=== PATIENT | female | born 1950 | race Caucasian/White ===

== ENCOUNTER 2017-06-02 12:06 | Outpatient (CLI) | payer MEDICARE ==
--- NOTE | 2017-06-02 13:28 | RAD ---
CHEST PA AND LATERAL: History: 67-year-old female for pre-operative evaluation. FINDINGS: Heart size is within normal limits. The lungs are clear. No pneumonia, edema, or pleural effusion. IMPRESSION: No acute intrathoracic disease. POS: [facility]
[2017-06-02 13:33] LABS: #Eosinphils 0.3 thou/uL (0.0-0.7); #Lymphocytes 1.1 thou/uL (1.20-3.40); #Monocytes 0.5 thou/uL (0.11-0.59); #Neutrophils 2.5 thou/uL (1.40-6.50); %Eosinophils 5.9 % (0.0-10.0); %Lymphocytes 25.1 % (21.0-51.0); %Monocytes 10.7 % (0.0-10.0); Mean Platelet Volume 8.3 fL (7.4-10.4); Red Blood Cell (RBC) Count 4.04 mill/uL (4.20-5.40); White Blood Cell (WBC) Count 4.3 thou/uL (4.8-10.8)
[2017-06-02 13:37] LABS: PTT 31.8 SEC (22.9-36.1); Prothrombin Time 13.3 SEC (12.0-14.7)
[2017-06-02 13:46] LABS: Bilirubin Negative (Negative); Blood, Urine Negative (Negative); Glucose, Urine (Dipstick) Negative (Negative); Ketone, Urine Negative (Negative); Nitrite Negative (Negative); Protein, Urine (Dipstick) Negative (Neg-Trace); Urobilinogen 0.2 mg/dL (0.2-1.0)
[2017-06-02 13:52] LABS: Bacteria/HPF None Seen HPF (None Seen); Hyaline Casts/LPF 0-3 HYALINE CAST LPF (0-3 Hyaline); RBC/HPF 0-3 HPF (0-3); Squamous Epithelial None Seen HPF (0-3); WBC/HPF 0-3 HPF (0-3)
[2017-06-02 14:00] LABS: Anion Gap 11 mmol/L (10-20); BUN (Urea Nitrogen) 22 mg/dL (9.8-20.1); Calc. Creatinine Clearance 0 mL/min (70-130); Calcium 9.6 mg/dL (7.8-10.44); Carbon Dioxide 28 mmol/L (23-31); Chloride 105 mmol/L (98-107); Estimated GFR-MDRD 55
== END 2017-06-02 12:07 | disposition home or self-care (01) ==
LOC: LABBT 12:06
PROVIDERS: ATTEND Orthopaedic Surgery
DX: Z01.818 Encounter for other preprocedural examination (principal); M16.12 Unilateral primary osteoarthritis, left hip
CPT/HCPCS: 71020; 80048; 81001; 85025; 85610; 85730; 87081

== ENCOUNTER 2017-06-02 12:30 | Inpatient (IN) | payer MEDICARE ==
[2017-06-02 12:29] VITALS: BMI 29.9
[2017-06-09] MEDS ORDERED: Fentanyl 100 MCG/2 ML VIAL ONE ×5 (06:27→09:33)
[2017-06-09] MEDS ORDERED: Midazolam HCl 2 mg/2 ml Vial ONE (06:27)
[2017-06-09] MEDS ORDERED: Tranexamic Acid 1,000 MG/100 ML BAG ONE ×2 (06:50→09:19)
[2017-06-09] MEDS ORDERED: CEFAZOLIN/Water 2 GM/20 ML SYRINGE ONE (06:51)
[2017-06-09] MEDS ORDERED: Fentanyl/Bupivacaine 250 ML in Premix Bag 1 BAG EPIDURAL SCH (07:15)
[2017-06-09] MEDS ORDERED: traMADol HCl 50 MG TAB PO PRN ×3 (07:15→07:19)
[2017-06-09] MEDS ORDERED: Naloxone HCl 0.4 mg/ml Vial IVP PRN (07:15)
[2017-06-09] MEDS ORDERED: diphenhydrAMINE 50 MG/ML VIAL IM PRN (07:15)
[2017-06-09] MEDS ORDERED: Zolpidem Tartrate 5 MG TAB PO PRN ×2 (07:15→07:19)
[2017-06-09] MEDS ORDERED: Eucerin (Mineral Oil/Petrolatum,White) 30 gm Jar TOP PRN (07:15)
[2017-06-09] MEDS ORDERED: HYDROcodone/Acetaminophen 5/325 mg Tablet PO PRN (07:15)
[2017-06-09] MEDS ORDERED: Naloxone HCl 0.4 mg/ml Vial IV PRN (07:15)
[2017-06-09] MEDS ORDERED: Promethazine HCl 25 MG/ML VIAL IM PRN ×3 (07:15→09:04)
[2017-06-09] MEDS ORDERED: diphenhydrAMINE 50 MG/ML VIAL IVP PRN (07:15)
[2017-06-09] MEDS ORDERED: Bupivacaine 0.25% 10 ML VIAL EPIDURAL PRN (07:15)
[2017-06-09] MEDS ORDERED: Ondansetron HCl/PF 4 MG/2 ML Vial IVP PRN ×3 (07:15→09:04)
[2017-06-09] MEDS ORDERED: Promethazine HCl 25 MG SUPP PR PRN (07:15)
[2017-06-09] MEDS ORDERED: HYDROcodone/Acetaminophen 10/325 mg Tablet PO PRN ×2 (07:19)
[2017-06-09] MEDS ORDERED: Fentanyl 100 MCG/2 ML VIAL SLOW IVP PRN ×2 (07:19)
[2017-06-09] MEDS ORDERED: Acetaminophen 325 MG TAB PO PRN (07:19)
[2017-06-09] MEDS ORDERED: diphenhydrAMINE 25 MG CAP PO PRN (07:19)
[2017-06-09] MEDS ORDERED: ePHEDrine/0.9% NaCl/PF SYRINGE 50 mg/10 ml ONE (07:23)
[2017-06-09] MEDS ORDERED: Propofol 200 MG/20 ML VIAL ONE (07:23)
[2017-06-09] MEDS ORDERED: Glycopyrrolate 0.2 MG/ML 5 ML SYRINGE ONE (07:23)
[2017-06-09] MEDS ORDERED: Lidocaine 2% PF 10 ML AMP (For Epidural Use) ONE (07:23)
[2017-06-09] MEDS ORDERED: Tranexamic Acid 1,000 MG in Sodium Chloride 0.9% 100 ML IVPB SCH (07:30)
[2017-06-09] MEDS ORDERED: Ropivacaine 0.2% HCl/PF 20 ML ONE (08:31)
[2017-06-09] MEDS ORDERED: Calcium Carbonate 500 MG TAB PO SCH (09:00)
[2017-06-09] MEDS ORDERED: Promethazine HCl 25 MG/ML VIAL SLOW IVP PRN (09:04)
[2017-06-09] MEDS ORDERED: Fentanyl/Bupivacaine 250 ML EPIDURAL ONE (09:28)
[2017-06-09] MEDS: Sodium Chloride 0.9% 1,000 ML IV SCH ×2 (10:04→14:29)
[2017-06-09] MEDS: Senokot S 8.6-50 MG TAB PO SCH ×2 (10:05→20:34)
[2017-06-09] MEDS: Ferrous Gluconate 324 MG TAB PO SCH ×2 (10:05→20:33)
[2017-06-09] MEDS: Calcium Carbonate 500 MG TAB PO SCH (10:05)
[2017-06-09] MEDS: Lisinopril/Hydrochlorothiazide 20 mg/12.5 mg Tablet PO SCH (10:05)
[2017-06-09] MEDS: Multivitamin W/ Minerals 1 TAB PO SCH (10:05)
[2017-06-09] MEDS: Aspirin 325 MG TAB PO SCH ×2 (10:05→20:33)
[2017-06-09] MEDS ORDERED: diphenhydrAMINE 50 MG/ML VIAL ONE (10:06)
--- NOTE | 2017-06-09 10:06 | RAD ---
TWO VIEWS LEFT HIP: Date: 06-09-17 History: Post op total hip replacement. FINDINGS: There are post-surgical changes related to left total hip prosthesis. No hardware complication seen. There is no fracture or dislocation seen. Subcutaneous emphysema is seen about the left hip related t o recent post-surgical change. A King catheter overlies the midline of the pelvis. IMPRESSION: Post-surgical changes related to recent left total hip replacement. POS: [facility]
--- NOTE | 2017-06-09 12:11 | OP ---
PREOPERATIVE DIAGNOSIS: Degenerative joint disease, left hip. POSTOPERATIVE DIAGNOSIS: Degenerative joint disease, left hip. SURGEON: Javier Vo M.D. ANESTHESIA: Genera . Asst: Call BLOOD LOSS: 200 mL. SPECIMEN: None. DRAINS: None. COMPLICATIONS: None. IMPLANTS USED: [place] Accolade #1 stem, 50-mm PSL cup, 36-mm head standard and standard 36-mm liner. PROCEDURE IN DETAIL: After informed consent was obtained in the preoperative holding area, the patient was taken to the operative suite where general anesthesia was induced. The patient was then positioned in the lateral decubitus position. The hip was then prepped and draped in usual sterile fashion. The patient received preoperative antibiotics. Prior to incision, time-out was called and all members of the surgical team agreed upon site, surgeon, and patient. After this, a longitudinal incision was made directly over the trochanter, noted by palpation extending 2 fingerbreadths above and below the trochanter. The deeper subcutaneous layer was undermined with Bovie electrocautery. The iliotibial band was encountered and incised sharply and the plane below this was developed bluntly. A Charnley retractor was placed to hold this opened. The lateral aspect of the trochanter and the abductor muscles were encountered and then reflected anteriorly off the trochanter using Bovie electrocautery. Once this was completed, the anterior capsule was then encountered and identified and copious capsulotomy was carried out, exposing the femoral neck and head. Dislocation maneuver was then performed and an in situ provisional neck cut was then made using the oscillating saw. Attention was then turned to acetabular preparation and sequential reaming was carried out up to the appropriate diameter and a trial was then malleted into place with good firm resistance and no pullout. The permanent acetabular shell was then malleted squarely into place, as was the appropriate liner. Once completed , the wound was copiously irrigated and attention was then turned to femoral preparation. Flexion and external rotation was performed of the exposed thigh and femoral elevators were then placed at the proximal aspect of the wound. Canal finder was used to establish the length of the canal and sequential reaming was carried out, followed by broaching. Once the appropriate stability was established with the trial broaches with both flexion, extension and rotational stability, we did trial with neutral and 2 mm offset incremental necks. Once the appropriate size was decided upon, with good stability noted with flexion, extension, internal and external rotation and shuck being negative , we removed the femoral trial broach and malletted into place the permanent prosthesis with good firm fit, which was also stable to rotation. Again, the hip felt very stable to flexion, extension, internal and external rotation. Leg lengths appeared near anatomic clinically and we were quite happy with prosthesis placement. Copious irrigation was then carried out through the entirety of the wound. Primary closure of the abductors was accomplished with interrupted #2 Vicryl [id number] stitches and the IT band was then closed with interrupted #2 Vicryl, oversewn with a #2 running barbed Quill stitch. Subcutaneous fascia was closed with running barbed Quill stitch and a subcuticular Monocryl barbed Quill stitch was used for skin closure and augmented with skin cement. A sterile dressing was applied. The procedure was terminated without any complication. All counts were correct. The patient was awakened in the operative suite and taken to the recovery room in stable condition. TACOS
[2017-06-09] MEDS ORDERED: FLU VACC TS2017-18 (>65YR) 0.5 ML SYRINGE IM ONE (13:00)
[2017-06-09] MEDS: CEFAZOLIN/Water 2 GM/20 ML SYRINGE SLOW IVP SCH ×2 (14:19→23:14)
--- NOTE | 2017-06-09 15:32 | PDOC.PN ---
- Subjective Encounter Start Date: 06/09/17 Encounter Start Time: 15:28 Pt seen for management of medical comorbidities, including hypertension. Denies chest pain, shortness of breath, fevers or chills. No nausea or vomiting. - Objective MAR Reviewed: Yes Vital Signs & Weight: Vital Signs (12 hours) Temp Pulse Resp BP Pulse Ox 06/09/17 12:21 97.0 F L 36 L 16 99 06/09/17 10:25 36 L 16 118/81 06/09/17 10:05 44 L 06/09/17 10:02 97.0 F L 44 L 18 105/44 L 98 Weight Weight 164 lb Result Diagrams: 06/10/17 04:56 Phys Exam - Physical Examination Constitutional: NAD HEENT: moist MMs, oral pharynx no lesions Neck: supple Respiratory: clear to auscultation bilateral Cardiovascular: RRR Gastrointestinal: soft s/p L hip surgery Neurological: moves all 4 limbs Psychiatric: normal affect Skin: no rash Dx/Plan (1) Hypertension Code(s): I10 - ESSENTIAL (PRIMARY) HYPERTENSION Status: Chronic (2) Hypothyroidism Code(s): E03.9 - HYPOTHYROIDISM, UNSPECIFIED Status: Chronic (3) Bradycardia Code(s): R00.1 - BRADYCARDIA, UNSPECIFIED Status: Chronic (4) Arthritis Code(s): M19.90 - UNSPECIFIED OSTEOARTHRITIS, UNSPECIFIED SITE Status: Chronic - Plan plan discussed w/ family, PT/OT, out of bed/ambulate * . Monitor vital signs, titrate antihypertensives as needed. Continue synthroid. Check TSH with next blood draw (to r/o hypothyroidism as a cause of bradycardia). Pt reports she has been bradycardic for several years, will follow up with her pcp. s/p L hip surgery. DVT prophylaxis and pain management per orthopedic surgery. Review of Systems - Review of Systems Constitutional: negative: Fever, Chills, Sweats, Weakness, Malaise Respiratory: negative: Cough, Dry, Shortness of Breath, Hemoptysis, SOB with Excertion, Pleuritic Pain, Sputum, Wheezing Cardiovascular: negative: Chest Pain, Palpitations, Orthopnea, Paroxysmal Noc. Dyspnea, Edema, Light Headedness - Medications/Allergies Allergies/Adverse Reactions: Allergies Allergy/AdvReac Type Severity Reaction Status Date / Time No Known Allergies Allergy Unverified 06/02/17 12:30 Medications: Current Medications Acetaminophen (Tylenol) 650 mg PO Q4H PRN PRN Reason: SANTIAGO/ T > 101F; Mild Pain (1-3) Hydrocodone Bitart/Acetaminophen ([place] 5/325) 1 tab PO Q4H PRN PRN Reason: Mild Pain 0-3 Hydrocodone Bitart/Acetaminophen ([place] 5/325) 2 tab PO Q4H PRN PRN Reason: For Moderate Pain 4-6 Aspirin (Aspirin) 325 mg PO BID [facility] Last Admin: 06/09/17 10:05 Dose: Not Given Atorvastatin Calcium (Lipitor) 20 mg PO HS [facility] Calcium Carbonate (Oscal-500) 500 mg PO DAILY [facility] Last Admin: 06/09/17 10:05 Dose: Not Given Cefazolin Sodium (Ancef) 2 gm SLOW IVP 1500,2300 [facility] Stop: 06/09/17 23:01 Last Admin: 06/09/17 14:19 Dose: 2 gm Cholecalciferol (Vitamin D3) 1,000 units PO DAILY [facility] Last Admin: 06/09/17 10:05 Dose: Not Given Diphenhydramine HCl (Benadryl) 25 mg PO Q3H PRN PRN Reason: Itching Diphenhydramine HCl (Benadryl) 25 mg IM Q3H PRN PRN Reason: Itching Diphenhydramine HCl (Benadryl) 25 mg IVP Q3H PRN PRN Reason: Itching Last Admin: 06/09/17 14:19 Dose: 25 mg Ferrous Gluconate (Fergon) 324 mg PO BID [facility] Last Admin: 06/09/17 10:05 Dose: Not Given Lisinopril/HCTZ (Prinizide 20-12.5) 1 tab PO QAM [facility] Last Admin: 06/09/17 10:05 Dose: Not Given Fentanyl Citrate 250 ml/ (Device) 250 mls @ 0 mls/hr EPIDURAL INF [facility] Sodium Chloride (Normal Saline 0.9%) 1,000 mls @ 100 mls/hr IV .Q10H [facility] Last Admin: 06/09/17 14:29 Dose: 1,000 mls Iron/Minerals/Multivitamins (Theragran M) 1 tab PO DAILY [facility] Last Admin: 06/09/17 10:05 Dose: Not Given Ketorolac Tromethamine (Toradol) 15 mg IVP Q6H PRN PRN Reason: Moderate Pain (4-6) Stop: 06/12/17 07:16 Levothyroxine Sodium (Synthroid) 100 mcg PO 0600 [facility] Mineral Oil/White Petrolatum (Eucerin Cream) 0 gm TOP PRN PRN PRN Reason: Itching Naloxone HCl (Narcan) 0.2 mg IV Q5MIN PRN PRN Reason: RR <=8 OR OBTUNDED/UNAROUSABLE Naloxone HCl (Narcan) 0.1 mg IVP Q15MIN PRN PRN Reason: URINARY RETENTION Ondansetron HCl (Zofran) 4 mg IVP Q6H PRN PRN Reason: Nausea/Vomiting Promethazine HCl (Phenergan) 12.5 mg IM Q4H PRN PRN Reason: Nausea Promethazine HCl (Phenergan Suppository) 25 mg SD Q4H PRN PRN Reason: Nausea/Vomiting Senna/Docusate Sodium (Senokot S) 2 tab PO BID [facility] Last Admin: 06/09/17 10:05 Dose: Not Given Sodium Chloride (Flush - Normal Saline) 10 ml IVF PRN PRN PRN Reason: Saline Flush Tramadol HCl (Ultram) 50 mg PO Q6H PRN PRN Reason: Mild Pain 1-3 Tramadol HCl (Ultram) 100 mg PO Q6H PRN PRN Reason: Moderate Pain 4-6 Zolpidem Tartrate (Ambien) 5 mg PO HSPRN PRN PRN Reason: Insomnia
[2017-06-09] MEDS ORDERED: hydrALAZINE 20 MG/ML VIAL SLOW IVP PRN (15:44)
[2017-06-09] MEDS: diphenhydrAMINE 25 MG CAP PO PRN (17:26)
[2017-06-09] MEDS ORDERED: hydrOXYzine Pamoate 25 mg Capsule PO PRN (18:04)
[2017-06-09] MEDS: Ketorolac Tromethamine 30 MG/ML VIAL IVP PRN (19:25)
[2017-06-09] MEDS: Atorvastatin Calcium 20 MG TAB PO SCH (20:33)
[2017-06-09] MEDS: HCL EPIDURAL SCH (21:54)
[2017-06-09] MEDS: ROPIVACAINE 0.2% EPIDURAL SCH (21:54)
[2017-06-09] MEDS: SODIUM CHLORIDE 0.9% EPIDURAL SCH (21:54)
[2017-06-09] MEDS: HYDROcodone/Acetaminophen 5/325 mg Tablet PO PRN (22:04)
[2017-06-10] MEDS: HYDROcodone/Acetaminophen 5/325 mg Tablet PO PRN ×6 (01:31→21:48)
[2017-06-10] MEDS: Sodium Chloride 0.9% 1,000 ML IV SCH ×3 (01:33→23:56)
[2017-06-10] MEDS: Ketorolac Tromethamine 30 MG/ML VIAL IVP PRN ×3 (03:01→18:06)
[2017-06-10 05:24] LABS: Hematocrit 27.9 % (36.0-47.0); Mean Platelet Volume 8.3 fL (7.4-10.4); Red Blood Cell (RBC) Count 2.89 mill/uL (4.20-5.40); White Blood Cell (WBC) Count 4.9 thou/uL (4.8-10.8)
[2017-06-10] MEDS ORDERED: Levothyroxine Sodium 100 MCG TAB PO SCH (06:00)
[2017-06-10] MEDS: Multivitamin W/ Minerals 1 TAB PO SCH (08:18)
[2017-06-10] MEDS: Senokot S 8.6-50 MG TAB PO SCH ×2 (08:18→21:51)
[2017-06-10] MEDS: Calcium Carbonate 500 MG TAB PO SCH (08:18)
[2017-06-10] MEDS: Ferrous Gluconate 324 MG TAB PO SCH ×2 (08:18→21:51)
[2017-06-10] MEDS: Aspirin 325 MG TAB PO SCH ×2 (08:18→21:50)
[2017-06-10] MEDS: Lisinopril/Hydrochlorothiazide 20 mg/12.5 mg Tablet PO SCH (09:44)
[2017-06-10 11:04] LABS: Free T3 2.14 pg/mL (1.71-3.71)
--- NOTE | 2017-06-10 14:14 | PDOC.PN ---
- Subjective Encounter Start Date: 06/10/17 Encounter Start Time: 08:00 Pt seen for followup re: hyperthyroidism. denies chest pain, shortness of breath, fevers. - Objective MAR Reviewed: Yes Vital Signs & Weight: Vital Signs (12 hours) Temp Pulse Resp BP BP Pulse Ox 06/10/17 13:04 98.4 F 49 L 16 88/52 L 94 L 06/10/17 09:44 62 87/57 L 06/10/17 08:00 97.8 F 62 16 92 L 06/10/17 07:25 97.8 F 55 L 16 80/48 L 92 L 06/10/17 03:14 98.7 F 64 17 105/63 94 L Weight Weight 164 lb I&O: 06/09/17 06/10/17 06/11/17 06:59 06:59 06:59 Intake Total 500 1680 Output Total 700 2000 Balance -200 -320 Result Diagrams: 06/10/17 04:56 Phys Exam - Physical Examination Constitutional: NAD HEENT: moist MMs, oral pharynx no lesions Neck: no JVD Respiratory: clear to auscultation bilateral Cardiovascular: RRR, no rub Gastrointestinal: soft, positive bowel sounds s/p L hip surgery Psychiatric: normal affect Skin: no rash Dx/Plan (1) Hyperthyroidism Code(s): E05.90 - THYROTOXICOSIS, UNSP WITHOUT THYROTOXIC CRISIS OR STORM Status: Acute (2) Hypertension Code(s): I10 - ESSENTIAL (PRIMARY) HYPERTENSION Status: Chronic (3) Bradycardia Code(s): R00.1 - BRADYCARDIA, UNSPECIFIED Status: Chronic (4) Arthritis Code(s): M19.90 - UNSPECIFIED OSTEOARTHRITIS, UNSPECIFIED SITE Status: Chronic - Plan PT/OT, out of bed/ambulate * . Decrease daily synthroid dose to 88 mmcg, pt will need to followup with her PCP and have her thyroid profile checked in 4-6 weeks. Monitor vital signs and titrate antihypertensives as needed. Review of Systems - Review of Systems Cardiovascular: negative: Chest Pain, Palpitations, Orthopnea, Paroxysmal Noc. Dyspnea, Edema, Light Headedness Gastrointestinal: negative: Nausea, Vomiting, Abdominal Pain, Diarrhea, Constipation, Melena, Hematochezia, Other - Medications/Allergies Allergies/Adverse Reactions: Allergies Allergy/AdvReac Type Severity Reaction Status Date / Time No Known Allergies Allergy Unverified 06/02/17 12:30 Medications: Current Medications Acetaminophen (Tylenol) 650 mg PO Q4H PRN PRN Reason: SANTIAGO/ T > 101F; Mild Pain (1-3) Hydrocodone Bitart/Acetaminophen ([place] 5/325) 1 tab PO Q4H PRN PRN Reason: Mild Pain 0-3 Hydrocodone Bitart/Acetaminophen ([place] 5/325) 2 tab PO Q4H PRN PRN Reason: For Moderate Pain 4-6 Last Admin: 06/10/17 13:56 Dose: 2 tab Aspirin (Aspirin) 325 mg PO BID [facility] Last Admin: 06/10/17 08:18 Dose: 325 mg Atorvastatin Calcium (Lipitor) 20 mg PO HS [facility] Last Admin: 06/09/17 20:33 Dose: 20 mg Calcium Carbonate (Oscal-500) 500 mg PO DAILY [facility] Last Admin: 06/10/17 08:18 Dose: 500 mg Cholecalciferol (Vitamin D3) 1,000 units PO DAILY [facility] Last Admin: 06/10/17 08:18 Dose: 1,000 units Diphenhydramine HCl (Benadryl) 25 mg PO Q3H PRN PRN Reason: Itching Last Admin: 06/09/17 17:26 Dose: 25 mg Diphenhydramine HCl (Benadryl) 25 mg IM Q3H PRN PRN Reason: Itching Diphenhydramine HCl (Benadryl) 25 mg IVP Q3H PRN PRN Reason: Itching Last Admin: 06/09/17 14:19 Dose: 25 mg Ferrous Gluconate (Fergon) 324 mg PO BID [facility] Last Admin: 06/10/17 08:18 Dose: 324 mg Lisinopril/HCTZ (Prinizide 20-12.5) 1 tab PO QAM [facility] Last Admin: 06/10/17 09:44 Dose: Not Given Hydralazine HCl (Apresoline) 10 mg SLOW IVP Q6H PRN PRN Reason: SBP Greater Than 170 Hydroxyzine Pamoate (Vistaril) 25 mg PO TID PRN PRN Reason: itching Last Admin: 06/09/17 18:39 Dose: 25 mg Sodium Chloride (Normal Saline 0.9%) 1,000 mls @ 100 mls/hr IV .Q10H [facility] Last Admin: 06/10/17 01:33 Dose: 1,000 mls Ropivacaine 25 mg/ Sodium (Chloride) 100 mls @ 6 mls/hr EPIDURAL INF [facility] Last Admin: 06/09/17 21:54 Dose: 100 mls Iron/Minerals/Multivitamins (Theragran M) 1 tab PO DAILY [facility] Last Admin: 06/10/17 08:18 Dose: 1 tab Ketorolac Tromethamine (Toradol) 15 mg IVP Q6H PRN PRN Reason: Moderate Pain (4-6) Stop: 06/12/17 07:16 Last Admin: 06/10/17 11:54 Dose: 15 mg Levothyroxine Sodium (Synthroid) 100 mcg PO 0600 [facility] Last Admin: 06/10/17 05:35 Dose: 100 mcg Mineral Oil/White Petrolatum (Eucerin Cream) 0 gm TOP PRN PRN PRN Reason: Itching Naloxone HCl (Narcan) 0.2 mg IV Q5MIN PRN PRN Reason: RR <=8 OR OBTUNDED/UNAROUSABLE Naloxone HCl (Narcan) 0.1 mg IVP Q15MIN PRN PRN Reason: URINARY RETENTION Ondansetron HCl (Zofran) 4 mg IVP Q6H PRN PRN Reason: Nausea/Vomiting Last Admin: 06/10/17 06:14 Dose: 4 mg Promethazine HCl (Phenergan) 12.5 mg IM Q4H PRN PRN Reason: Nausea Promethazine HCl (Phenergan Suppository) 25 mg [place] Q4H PRN PRN Reason: Nausea/Vomiting Senna/Docusate Sodium (Senokot S) 2 tab PO BID [facility] Last Admin: 06/10/17 08:18 Dose: 2 tab Sodium Chloride (Flush - Normal Saline) 10 ml IVF PRN PRN PRN Reason: Saline Flush Tramadol HCl (Ultram) 50 mg PO Q6H PRN PRN Reason: Mild Pain 1-3 Tramadol HCl (Ultram) 100 mg PO Q6H PRN PRN Reason: Moderate Pain 4-6 Last Admin: 06/09/17 20:34 Dose: 100 mg Zolpidem Tartrate (Ambien) 5 mg PO HSPRN PRN PRN Reason: Insomnia
[2017-06-10] MEDS: HCL EPIDURAL SCH (15:39)
[2017-06-10] MEDS: ROPIVACAINE 0.2% EPIDURAL SCH (15:39)
[2017-06-10] MEDS: SODIUM CHLORIDE 0.9% EPIDURAL SCH (15:39)
[2017-06-10] MEDS: diphenhydrAMINE 25 MG CAP PO PRN (18:17)
[2017-06-10] MEDS: Atorvastatin Calcium 20 MG TAB PO SCH (21:51)
[2017-06-11] MEDS: Ketorolac Tromethamine 30 MG/ML VIAL IVP PRN ×2 (00:04→05:54)
[2017-06-11] MEDS: HYDROcodone/Acetaminophen 5/325 mg Tablet PO PRN ×2 (04:01→08:48)
[2017-06-11 04:15] VITALS: TEMP 98.6
[2017-06-11] MEDS: HCL EPIDURAL SCH (04:21)
[2017-06-11] MEDS: SODIUM CHLORIDE 0.9% EPIDURAL SCH (04:21)
[2017-06-11] MEDS: ROPIVACAINE 0.2% EPIDURAL SCH (04:21)
[2017-06-11 05:30] LABS: Hematocrit 29.6 % (36.0-47.0); Mean Platelet Volume 8.6 fL (7.4-10.4); Red Blood Cell (RBC) Count 3.02 mill/uL (4.20-5.40); White Blood Cell (WBC) Count 5.1 thou/uL (4.8-10.8)
[2017-06-11] MEDS ORDERED: Levothyroxine Sodium 88 MCG TAB PO SCH (06:00)
[2017-06-11] MEDS ORDERED: HYDROcodone/Acetaminophen 10/325 mg Tablet PO PRN ×2 (08:35)
[2017-06-11] MEDS: Aspirin 325 MG TAB PO SCH (08:44)
[2017-06-11] MEDS: Ferrous Gluconate 324 MG TAB PO SCH (08:44)
[2017-06-11] MEDS: Calcium Carbonate 500 MG TAB PO SCH (08:44)
[2017-06-11] MEDS: Lisinopril/Hydrochlorothiazide 20 mg/12.5 mg Tablet PO SCH (08:44)
[2017-06-11] MEDS: Multivitamin W/ Minerals 1 TAB PO SCH (08:45)
[2017-06-11] MEDS: Senokot S 8.6-50 MG TAB PO SCH (08:45)
--- NOTE | 2017-06-11 08:45 | PDOC.PN ---
- Subjective Encounter Start Date: 06/11/17 Encounter Start Time: 14:02 - Objective MAR Reviewed: Yes Vital Signs & Weight: Vital Signs (12 hours) Temp Pulse Resp BP Pulse Ox 06/11/17 04:00 98.6 F 61 18 119/72 97 06/11/17 00:00 98.5 F 64 16 111/65 94 L Weight Admit Weight 164 lb Weight 164 lb I&O: 06/10/17 06/11/17 06/12/17 06:59 06:59 06:59 Intake Total 500 2180 Output Total 700 4500 Balance -200 -2320 Result Diagrams: 06/11/17 04:29 Dx/Plan - Plan * . Review of Systems - Medications/Allergies Allergies/Adverse Reactions: Allergies Allergy/AdvReac Type Severity Reaction Status Date / Time No Known Allergies Allergy Unverified 06/02/17 12:30 Medications: Current Medications Acetaminophen (Tylenol) 650 mg PO Q4H PRN PRN Reason: SANTIAGO/ T > 101F; Mild Pain (1-3) Hydrocodone Bitart/Acetaminophen ([place] 5/325) 1 tab PO Q4H PRN PRN Reason: Mild Pain 0-3 Hydrocodone Bitart/Acetaminophen ([place] 5/325) 2 tab PO Q4H PRN PRN Reason: For Moderate Pain 4-6 Last Admin: 06/11/17 04:01 Dose: 2 tab Hydrocodone Bitart/Acetaminophen ([place] 10/325) 1 tab PO Q4H PRN PRN Reason: Pain Hydrocodone Bitart/Acetaminophen ([place] 10/325) 2 tab PO Q4H PRN PRN Reason: Pain Aspirin (Aspirin) 325 mg PO BID [facility] Last Admin: 06/10/17 21:50 Dose: 325 mg Atorvastatin Calcium (Lipitor) 20 mg PO HS [facility] Last Admin: 06/10/17 21:51 Dose: 20 mg Calcium Carbonate (Oscal-500) 500 mg PO DAILY [facility] Last Admin: 06/10/17 08:18 Dose: 500 mg Cholecalciferol (Vitamin D3) 1,000 units PO DAILY [facility] Last Admin: 06/10/17 08:18 Dose: 1,000 units Diphenhydramine HCl (Benadryl) 25 mg PO Q3H PRN PRN Reason: Itching Last Admin: 06/10/17 18:17 Dose: 25 mg Diphenhydramine HCl (Benadryl) 25 mg IM Q3H PRN PRN Reason: Itching Diphenhydramine HCl (Benadryl) 25 mg IVP Q3H PRN PRN Reason: Itching Last Admin: 06/09/17 14:19 Dose: 25 mg Ferrous Gluconate (Fergon) 324 mg PO BID [facility] Last Admin: 06/10/17 21:51 Dose: 324 mg Lisinopril/HCTZ (Prinizide 20-12.5) 1 tab PO QAM [facility] Last Admin: 06/10/17 09:44 Dose: Not Given Hydralazine HCl (Apresoline) 10 mg SLOW IVP Q6H PRN PRN Reason: SBP Greater Than 170 Hydroxyzine Pamoate (Vistaril) 25 mg PO TID PRN PRN Reason: itching Last Admin: 06/09/17 18:39 Dose: 25 mg Sodium Chloride (Normal Saline 0.9%) 1,000 mls @ 100 mls/hr IV .Q10H [facility] Last Admin: 06/10/17 23:56 Dose: Not Given Ropivacaine 25 mg/ Sodium (Chloride) 100 mls @ 8 mls/hr EPIDURAL INF [facility] Last Admin: 06/11/17 04:21 Dose: 100 mls Iron/Minerals/Multivitamins (Theragran M) 1 tab PO DAILY [facility] Last Admin: 06/10/17 08:18 Dose: 1 tab Ketorolac Tromethamine (Toradol) 15 mg IVP Q6H PRN PRN Reason: Moderate Pain (4-6) Stop: 06/12/17 07:16 Last Admin: 06/11/17 05:54 Dose: 15 mg Levothyroxine Sodium (Synthroid) 88 mcg PO 0600 [facility] Last Admin: 06/11/17 05:54 Dose: 88 mcg Mineral Oil/White Petrolatum (Eucerin Cream) 0 gm TOP PRN PRN PRN Reason: Itching Naloxone HCl (Narcan) 0.2 mg IV Q5MIN PRN PRN Reason: RR <=8 OR OBTUNDED/UNAROUSABLE Naloxone HCl (Narcan) 0.1 mg IVP Q15MIN PRN PRN Reason: URINARY RETENTION Ondansetron HCl (Zofran) 4 mg IVP Q6H PRN PRN Reason: Nausea/Vomiting Last Admin: 06/10/17 06:14 Dose: 4 mg Promethazine HCl (Phenergan) 12.5 mg IM Q4H PRN PRN Reason: Nausea Promethazine HCl (Phenergan Suppository) 25 mg [place] Q4H PRN PRN Reason: Nausea/Vomiting Senna/Docusate Sodium (Senokot S) 2 tab PO BID [facility] Last Admin: 06/10/17 21:51 Dose: 2 tab Sodium Chloride (Flush - Normal Saline) 10 ml IVF PRN PRN PRN Reason: Saline Flush Tramadol HCl (Ultram) 50 mg PO Q6H PRN PRN Reason: Mild Pain 1-3 Tramadol HCl (Ultram) 100 mg PO Q6H PRN PRN Reason: Moderate Pain 4-6 Last Admin: 06/09/17 20:34 Dose: 100 mg Zolpidem Tartrate (Ambien) 5 mg PO HSPRN PRN PRN Reason: Insomnia
[2017-06-11 08:48] VITALS: BP 117/72
[2017-06-11] MEDS: Sodium Chloride 0.9% 1,000 ML IV SCH (08:51)
--- NOTE | 2017-06-11 09:49 | DIS ---
DATE OF ADMISSION: 06/09/2017 DATE OF DISCHARGE: 06/11/2017 PREOPERATIVE DIAGNOSIS: Degenerative joint disease, left hip. DISCHARGE DIAGNOSIS: Degenerative joint disease, left hip. PROCEDURE: The patient underwent a left total hip replacement. HOSPITAL COURSE: Hospital stay was unremarkable. She did quite well. She had no postop complicatio ns. By postoperative day 2, she was ready to discharge home. DISCHARGE CONDITION: Good/stable. DISPOSITION: Home with family. FOLLOWUP: Followup would be in 3-4 weeks, sooner if there are problems or concerns. DISCHARGE MEDICATIONS: Given with usage instructions. This is Agus Call PA-C, for Javier Vo M.D.
--- NOTE | 2017-06-11 11:16 | PDOC.PN ---
- Subjective Encounter Start Date: 06/11/17 Encounter Start Time: 08:00 -: old records requested/rev Patient seen and examined. No new complaints. No overnight events - Objective MAR Reviewed: Yes Vital Signs & Weight: Vital Signs (12 hours) Temp Pulse Resp BP BP Pulse Ox 06/11/17 08:44 61 119/72 06/11/17 07:50 98.6 F 83 18 117/72 95 06/11/17 04:00 98.6 F 61 18 119/72 97 06/11/17 00:00 98.5 F 64 16 111/65 94 L Weight Admit Weight 164 lb Weight 164 lb I&O: 06/10/17 06/11/17 06/12/17 06:59 06:59 06:59 Intake Total 500 2180 Output Total 700 4500 Balance -200 -2320 Result Diagrams: 06/11/17 04:29 Phys Exam - Physical Examination Constitutional: NAD HEENT: PERRLA, moist MMs, sclera anicteric Neck: no JVD, supple Respiratory: no wheezing, no rales, no rhonchi Cardiovascular: RRR, no significant murmur, no rub Gastrointestinal: soft, non-tender, no distention, positive bowel sounds Musculoskeletal: no edema, pulses present Neurological: non-focal, normal sensation Psychiatric: normal affect, A&O x 3 Skin: no rash, normal turgor Dx/Plan (1) Hyperthyroidism Code(s): E05.90 - THYROTOXICOSIS, UNSP WITHOUT THYROTOXIC CRISIS OR STORM Status: Acute (2) Status post total hip replacement, left Code(s): Z96.642 - PRESENCE OF LEFT ARTIFICIAL HIP JOINT Status: Acute (3) Arthritis Code(s): M19.90 - UNSPECIFIED OSTEOARTHRITIS, UNSPECIFIED SITE Status: Chronic (4) Bradycardia Code(s): R00.1 - BRADYCARDIA, UNSPECIFIED Status: Chronic (5) Hypertension Code(s): I10 - ESSENTIAL (PRIMARY) HYPERTENSION Status: Chronic (6) Hypothyroidism Code(s): E03.9 - HYPOTHYROIDISM, UNSPECIFIED Status: Chronic - Plan cont current plan of care, plan discussed w/ family * stable for discharge * pain controlled * discussed with daughter * medication reviewed as below * symptomatic treatment. Review of Systems - Review of Systems ENT: negative: Ear Pain, Ear Discharge, Nose Pain, Nose Discharge, Nose Congestion, Mouth Pain, Mouth Swelling, Throat Pain, Throat Swelling, Other Respiratory: negative: Cough, Dry, Shortness of Breath, Hemoptysis, SOB with Excertion, Pleuritic Pain, Sputum, Wheezing Cardiovascular: negative: Chest Pain, Palpitations, Orthopnea, Paroxysmal Noc. Dyspnea, Edema, Light Headedness, Other Gastrointestinal: negative: Nausea, Vomiting, Abdominal Pain, Diarrhea, Constipation, Melena, Hematochezia, Other Genitourinary: negative: Dysuria, Frequency, Incontinence, Hematuria, Retention , Other Musculoskeletal: negative: Neck Pain, Shoulder Pain, Arm Pain, Back Pain, Hand Pain, Leg Pain, Foot Pain, Other Skin: negative: Rash, Lesions, Sergio, Bruising, Other - Medications/Allergies Allergies/Adverse Reactions: Allergies Allergy/AdvReac Type Severity Reaction Status Date / Time No Known Allergies Allergy Unverified 06/02/17 12:30 Medications: Current Medications Acetaminophen (Tylenol) 650 mg PO Q4H PRN PRN Reason: SANTIAGO/ T > 101F; Hydrocodone Bitart/Acetaminophen ([place] 5/325) 1 tab PO Q4H PRN PRN Reason: Mild Pain 0-3 Hydrocodone Bitart/Acetaminophen ([place] 5/325) 2 tab PO Q4H PRN PRN Reason: For Moderate Pain 4-6 Last Admin: 06/11/17 08:48 Dose: 2 tab Hydrocodone Bitart/Acetaminophen ([place] 10/325) 1 tab PO Q4H PRN PRN Reason: Moderate Pain (4-6) Hydrocodone Bitart/Acetaminophen ([place] 10/325) 2 tab PO Q4H PRN PRN Reason: Severe Pain (7-10) Aspirin (Aspirin) 325 mg PO BID [facility] Last Admin: 06/11/17 08:44 Dose: 325 mg Atorvastatin Calcium (Lipitor) 20 mg PO HS [facility] Last Admin: 06/10/17 21:51 Dose: 20 mg Calcium Carbonate (Oscal-500) 500 mg PO DAILY [facility] Last Admin: 06/11/17 08:44 Dose: 500 mg Cholecalciferol (Vitamin D3) 1,000 units PO DAILY [facility] Last Admin: 06/11/17 08:44 Dose: 1,000 units Diphenhydramine HCl (Benadryl) 25 mg PO Q3H PRN PRN Reason: Itching Last Admin: 06/10/17 18:17 Dose: 25 mg Diphenhydramine HCl (Benadryl) 25 mg IM Q3H PRN PRN Reason: Itching Diphenhydramine HCl (Benadryl) 25 mg IVP Q3H PRN PRN Reason: Itching Last Admin: 06/09/17 14:19 Dose: 25 mg Ferrous Gluconate (Fergon) 324 mg PO BID [facility] Last Admin: 06/11/17 08:44 Dose: 324 mg Lisinopril/HCTZ (Prinizide 20-12.5) 1 tab PO QAM [facility] Last Admin: 06/11/17 08:44 Dose: 1 tab Hydralazine HCl (Apresoline) 10 mg SLOW IVP Q6H PRN PRN Reason: SBP Greater Than 170 Hydroxyzine Pamoate (Vistaril) 25 mg PO TID PRN PRN Reason: itching Last Admin: 06/09/17 18:39 Dose: 25 mg Sodium Chloride (Normal Saline 0.9%) 1,000 mls @ 100 mls/hr IV .Q10H [facility] Last Admin: 06/11/17 08:51 Dose: Not Given Ropivacaine 25 mg/ Sodium (Chloride) 100 mls @ 8 mls/hr EPIDURAL INF [facility] Last Admin: 06/11/17 04:21 Dose: 100 mls Iron/Minerals/Multivitamins (Theragran M) 1 tab PO DAILY [facility] Last Admin: 06/11/17 08:45 Dose: 1 tab Ketorolac Tromethamine (Toradol) 15 mg IVP Q6H PRN PRN Reason: Moderate Pain (4-6) Stop: 06/12/17 07:16 Last Admin: 06/11/17 05:54 Dose: 15 mg Levothyroxine Sodium (Synthroid) 88 mcg PO 0600 [facility] Last Admin: 06/11/17 05:54 Dose: 88 mcg Mineral Oil/White Petrolatum (Eucerin Cream) 0 gm TOP PRN PRN PRN Reason: Itching Naloxone HCl (Narcan) 0.2 mg IV Q5MIN PRN PRN Reason: RR <=8 OR OBTUNDED/UNAROUSABLE Naloxone HCl (Narcan) 0.1 mg IVP Q15MIN PRN PRN Reason: URINARY RETENTION Ondansetron HCl (Zofran) 4 mg IVP Q6H PRN PRN Reason: Nausea/Vomiting Last Admin: 06/10/17 06:14 Dose: 4 mg Promethazine HCl (Phenergan) 12.5 mg IM Q4H PRN PRN Reason: Nausea Promethazine HCl (Phenergan Suppository) 25 mg SC Q4H PRN PRN Reason: Nausea/Vomiting Senna/Docusate Sodium (Senokot S) 2 tab PO BID [facility] Last Admin: 06/11/17 08:45 Dose: 2 tab Sodium Chloride (Flush - Normal Saline) 10 ml IVF PRN PRN PRN Reason: Saline Flush Tramadol HCl (Ultram) 50 mg PO Q6H PRN PRN Reason: Mild Pain 1-3 Tramadol HCl (Ultram) 100 mg PO Q6H PRN PRN Reason: Moderate Pain 4-6 Last Admin: 06/09/17 20:34 Dose: 100 mg Zolpidem Tartrate (Ambien) 5 mg PO HSPRN PRN PRN Reason: Insomnia
--- NOTE | 2017-06-11 13:17 | DIS ---
DATE OF ADMISSION: 06/09/2017 DATE OF DISCHARGE: 06/11/2017 PRIMARY CARE PHYSICIAN: Dr. Severino Owens. DISCHARGE DISPOSITION: Home. PRIMARY DISCHARGE DIAGNOSIS: Left total hip replacement. SECONDARY DISCHARGE DIAGNOSES: Hypothyroidism, hypertension, sinus bradycardia, osteoarthritis. PRIMARY PROCEDURE/OPERATION: Left hip replacement by Dr. Vo. RADIOLOGICAL INVESTIGATION: Hip x-ray. SIGNIFICANT LABS: Hemoglobin 9.7, free T4 1.53, free T3 2.14, TSH 0.1848. DISCHARGE MEDICATIONS: Synthroid 100 mcg p.o. every other day, aspirin 325 mg p.o. b.i.d., Lipitor 2 0 mg p.o. at bedtime, calcium 1 tablet p.o. daily, vitamin D3 1000 units p.o. daily, [place] 10 one or two tablets q.4 hourly p.r.n., Atarax 25 mg t.i.d. p.r.n. and Prinzide 20/12.5 one tablet p.o. daily. CONTRAINDICATIONS: None. CODE STATUS: FULL CODE. INPATIENT CONSULTANTS: Dr. Vo was primary. [facility] Team was consulted for medical comanagement. TEST RESULTS PENDING ON DISCHARGE: None. ALLERGIES: No known drug allergy. DISCHARGE PLAN: Post hospital, the patient will follow up with primary care physician in 1 week. Th e patient has appointment with Dr. Vo on 07/02/2017. HOSPITAL COURSE: A 67-year-old female who was electively admitted by Dr. Vo for left hip replace ment. Postoperatively, [facility] Team was consulted for medical comanagement. During this admission, we checked thyroid function tests and we found that patient has hyperthyroidism. She had elevated free T4 and low TSH and that is why we did reduce the dose of Synthroid. Patient is advised to follow [facility] primary care physician and she will need repeat thyroid function test. Patient is given aspirin f or DVT prophylaxis. Pain medication given by the primary team with [place]. Overall, the patient is d oing very well. The patient is planned for discharge today by primary team and we will sign off. Th e patient is seen and examined at bedside today. Please see my progress note from for further detail s.
--- NOTE | 2017-06-14 08:37 | EKG ---
Test Reason : PREOP Blood Pressure : / mmHG Vent. Rate : 051 BPM Atrial Rate : 051 BPM P-R Int : 180 ms QRS Dur : 084 ms QT Int : 476 ms P-R-T Axes : 057 004 059 degrees QTc Int : 438 ms Sinus bradycardia Otherwise normal ECG No previous ECGs available Confirmed by Stephanie MENA ([id number]) on 06/14/2017 8:37:29 AM Referred By: ENMA Confirmed By:Stephanie MENA
== END 2017-06-11 12:53 | disposition home or self-care (01) | DRG 470 ==
LOC: SURG A 06-09 05:21 → SJJU 06-09 09:56
PROVIDERS: ADMIT Orthopaedic Surgery; ATTEND Orthopaedic Surgery
PROC: 0SRB0JA Replacement of Left Hip Joint with Synthetic Substitute, Uncemented, Open Approach (ICD-10-PCS; principal; 2017-06-09)
PROC: 3E0T3BZ Introduction of Anesthetic Agent into Peripheral Nerves and Plexi, Percutaneous Approach (ICD-10-PCS; 2017-06-09)
DX: M16.12 Unilateral primary osteoarthritis, left hip (principal); I10 Essential (primary) hypertension; R00.1 Bradycardia, unspecified; E03.9 Hypothyroidism, unspecified; Z82.49 Family history of ischemic heart disease and other diseases of the circulatory system; Z80.0 Family history of malignant neoplasm of digestive organs; Z80.8 Family history of malignant neoplasm of other organs or systems
CPT/HCPCS: 36415; 84439; 84443; 84481; 85027; 86850; 86900; 86901; 90471; 90682; 93005; 93010; C1776; G0008; G8978-GP-CK; G8979-GP-CI; G8987-GO-CK; G8988-GO-CI; J1200; J1885; J2001; J2250; J2405; J2704; J2795; J3010; J3370; J7050; Q0177; Q2036

== ENCOUNTER 2018-02-03 10:48 | Outpatient (CLI) | payer MEDICARE | END 2018-02-03 10:49 | disposition home or self-care (01) | LOC: BICMAMMO 10:48 | PROVIDERS: ATTEND Internal Medicine | DX: Z12.31 Encounter for screening mammogram for malignant neoplasm of breast (principal); Z80.3 Family history of malignant neoplasm of breast | CPT/HCPCS: 77063; 77067 ==

== ENCOUNTER 2019-01-24 11:56 | Inpatient (IN) | payer MEDICARE ==
[2019-01-24] MEDS ORDERED: Atropine Sulfate 1 mg/10 ml Syringe ONE (12:16)
[2019-01-24] MEDS ORDERED: Aspirin Chewable 81 MG TAB ONE (12:24)
[2019-01-24 12:34] LABS: #Basophils 0.1 thou/uL (0.0-0.2); #Eosinphils 0.2 thou/uL (0.0-0.7); #Lymphocytes 1.3 thou/uL (1.20-3.40); #Monocytes 0.5 thou/uL (0.11-0.59); #Neutrophils 2.6 thou/uL (1.40-6.50); %Basophils 1.7 % (0.0-1.0); %Eosinophils 4.2 % (0.0-10.0); %Lymphocytes 27.9 % (21.0-51.0); %Monocytes 9.7 % (0.0-10.0); %Neutrophils 56.6 % (42.0-75.0); Hemoglobin 14.3 g/dL (12.0-16.0); Mean Corpuscular Hemoglobin 30.6 pg (27.0-31.0); Mean Corpuscular Volume 89.8 fL (78.0-98.0); Mean Platelet Volume 8.3 fL (7.4-10.4); Platelet Count 191 thou/uL (130-400); Red Blood Cell (RBC) Count 4.66 mill/uL (4.20-5.40); White Blood Cell (WBC) Count 4.7 thou/uL (4.8-10.8)
--- NOTE | 2019-01-24 12:34 | RAD ---
Exam: Chest one view HISTORY:Weakness. Bradycardia. Comparison: 06/02/2017 FINDINGS: Cardiac silhouette: Normal Pulmonary vessels: Normal Costophrenic angles: Clear LUNGS: No masses or consolidation. Pneumothorax: None Osseous abnormalities: None IMPRESSION: No acute cardiopulmonary process.
[2019-01-24 12:51] LABS: ALT (SGPT) 21 U/L (8-55); AST (SGOT) 24 U/L (5-34); Albumin 4.2 g/dL (3.4-4.8); Alkaline Phosphatase 81 U/L (40-150); Anion Gap 14 mmol/L (10-20); BUN (Urea Nitrogen) 14 mg/dL (9.8-20.1); Bilirubin, Total 1.3 mg/dL (0.2-1.2); CK (CPK) 58 U/L (29-168); Calc. Creatinine Clearance 0 mL/min (70-130); Calcium 10.1 mg/dL (7.8-10.44); Carbon Dioxide 27 mmol/L (23-31); Chloride 105 mmol/L (98-107); Estimated GFR-MDRD 58; Glucose 90 mg/dL (80-115); Lipase 25 U/L (8-78); Potassium 3.7 mmol/L (3.5-5.1); Protein, Total 7.2 g/dL (6.0-8.3); Sodium 142 mmol/L (136-145)
[2019-01-24 15:43] VITALS: BMI 28.9
[2019-01-24 16:21] LABS: Troponin I Less than 0.010 ng/mL (< 0.028)
[2019-01-24] MEDS ORDERED: Ondansetron PF 4 MG/2 ML Vial IVP PRN (16:33)
[2019-01-24] MEDS ORDERED: Acetaminophen 325 MG TAB PO PRN (16:33)
[2019-01-24] MEDS ORDERED: Ondansetron ODT 8 MG TAB PO PRN (16:34)
[2019-01-24 19:49] LABS: Troponin I Less than 0.010 ng/mL (< 0.028)
[2019-01-24] MEDS ORDERED: Atorvastatin Calcium 20 MG TAB PO SCH (21:00)
[2019-01-24] MEDS ORDERED: Prevnar 13-Val Conj/PF 0.5 ML SYRINGE IM ONE (21:00)
--- NOTE | 2019-01-25 02:08 | HP ---
PRIMARY CARE PHYSICIAN: Severino Owens M.D. CHIEF COMPLAINT: Generalized weakness and bradycardia. HISTORY OF PRESENT ILLNESS: Ms. King is a pleasant 68-year-old female who had presented to [facility] after being transferred from [facility] ER after feeling weak and dizzy for the last several days. She states symptoms started on 01/20/2019, when she was attending a 01/20/2019, festival and was making quotes. She states that she felt that she was getting overheated and felt a little nauseous and slightly lightheaded. She states that she had then walked to a building close by that had A/C and she had laid on the ground. She states that she had laid there for roughly 30 minutes and had felt slightly better; however, symptoms seem to continue over the weekend and on through this morning. She states that she has a history of sinus bradycardia with a rate in the 60s, she states that she had seen Dr. Martin in the past and had undergone a cardiac workup roughly 3 to 4 years ago, which was unremarkable. Upon arriving to the [facility] ER, her heart rate was noted to be in the 40s, she was given aspirin and atropine, which seemed to improve her heart rate; however, it later returned in the 40s on the monitor. She had denied any fever, chills, any headache, blurred vision, dizziness, chest pain, palpitation, shortness of breath, abdominal pain, nausea, vomiting upon arriving to [facility]. Her labs showed a lactic acid 1.2. Troponin less than 0.010. Sodium, potassium, and other electrolytes unremarkable and within normal limits. Blood pressure stable; however, rates seemed to stay in the 40s and 50s on the monitor. Dr. Martin was then consulted for further evaluation of the patient's bradycardia. REVIEW OF SYSTEMS: All other systems reviewed and found to be negative unless mentioned in the HPI. PAST MEDICAL HISTORY: 1. Hypertension. 2. Hyperlipidemia. 3. Hypothyroidism. PAST SURGICAL HISTORY: 1. section. 2. Left hip replacement. PSYCHIATRIC HISTORY: None. SOCIAL HISTORY: The patient denies any alcohol, tobacco, or illicit drug use. KNOWN ALLERGIES: No known drug allergies. CURRENT HOME MEDICATIONS: 1. Lisinopril/hydrochlorothiazide 20/12.5 mg p.o. q.a.m. 2. Levothyroxine 100 mcg p.o. daily. 3. Atorvastatin 20 mg p.o. q.h.s. 4. Aspirin 81 mg daily. PHYSICAL EXAMINATION: VITAL SIGNS: BP 127/60, pulse 42, respirations 20, temperature 97.8 degrees Fahrenheit, and O2 saturations 98% on room air. GENERAL: The patient is awake, alert, and oriented x3. She is currently sitting up in bed and in no acute distress at this time. HEENT: Atraumatic and normocephalic. Pupils are round and reactive to light. Extraocular muscles intact. Moist mucous membranes noted. CARDIOVASCULAR: Positive S1 and S2. Bradycardic on the monitor with rates in the 40s. No murmur auscultated. RESPIRATORY: Clear to auscultation bilaterally. No wheezes, rales, or rhonchi. ABDOMEN: Soft and nontender. Bowel sounds present. MUSCULOSKELETAL: Strength 5+ bilaterally in upper and lower extremities. Moves all extremities equal. Pedal and radial pulses palpable 2+ bilaterally. No edema noted. NEUROLOGIC: Cranial nerves 2 through 12 grossly intact. No focal deficits noted. Speech intact and normal. Gait not assessed. SKIN: Warm, dry, and intact. No rashes. No ulceration noted. PSYCHIATRIC: Good mood and affect. LABORATORY DATA: WBC 4.7, RBC 4.66, hemoglobin 14.3, and platelet 191. Sodium 142, potassium 3.7, anion gap 14, BUN 14, creatinine 0.96, estimated GFR 58, glucose 90, lactic acid 1.2, and calcium 10.1. Troponin less than 0.010 x2. Lipase 25. TSH 0.0650. DIAGNOSTIC IMAGING: Portable chest x-ray shows no acute cardiopulmonary process. ASSESSMENT AND PLAN: 1. Symptomatic bradycardia. The patient's orthostatic vital signs are normal. Cardiology Service with Dr. Martin consult placed and we will appreciate further recommendations. The patient will be restarted on her home medications. Free T4 will be checked, and blood pressure and other vital signs will be monitored throughout hospital course. 2. Hypertension, currently stable at this time. The patient will be resumed on her home regimen. 3. Hyperlipidemia. Continue home statin. 4. Hypothyroidism. Continue the patient's home levothyroxine. TSH was found to be 0.0650. We will check a free T4. 5. Code status. Full Code. 6. Deep venous thrombosis and gastrointestinal prophylaxis. 7. Surrogate decision maker is her children, CLARENCE Ordonez, and Kaci. Job ID: [id number]
--- NOTE | 2019-01-25 02:30 | CON ---
DATE OF CONSULTATION: HISTORY OF PRESENT ILLNESS: Abi King is a pleasant 68-year-old white female, who states she has been told for many years that she has a slow heart rate. On the 20 of January, she was at a parade and noticed that she became extremely weak and dizzy and felt somewhat nauseated like she does with her car sickness. She went into an air-conditioned building and recovered after 10 or 15 minutes. She has noted since then that she has been lightheaded and has been feeling very weak. She came in for evaluation and has been found to have heart rates in the high 40s at times. She states that usually her heart rate is in the high 50s to low 60s. She denies any chest discomfort, shortness of breath, or peripheral edema. PAST MEDICAL HISTORY: Hypertension, hypercholesterolemia, hypothyroidism. PAST SURGICAL HISTORY: Left total hip replacement and section. MEDICATIONS: 1. Triamterene/hydrochlorothiazide 37.5/25 q.a.m. 2. Crestor 20 mg q.a.m. 3. Levothyroxine 100 mcg daily. 4. Aspirin 81 mg daily. ALLERGIES: NONE. SOCIAL HISTORY: She does not smoke or drink. FAMILY HISTORY: Her mother and sister both had bypass surgery at age 66. REVIEW OF SYSTEMS: A 12-point review of systems is otherwise unremarkable. PHYSICAL EXAMINATION: VITAL SIGNS: Blood pressure 150/70, pulse of 53. On the monitor, she has documented a heart rate of 40. HEENT: PERRL. NECK: Supple. CHEST: Clear. CARDIAC: S1 and S2 normal without any S3, S4, or murmurs. Carotid upstrokes normal without bruits. ABDOMEN: Normal bowel sounds without tenderness. EXTREMITIES: Revealed no clubbing, cyanosis, or edema. NEUROLOGICAL: Grossly intact. SKIN: Warm and dry. LABORATORY DATA: EKG reveals sinus bradycardia with heart rate of 47 per minute , otherwise unremarkable. Another EKG shows a heart rate of 43 per minute. Chest x-ray revealed no acute process. White count 4700, hemoglobin 14.3, hematocrit 41.9, platelets 191,000. Sodium 142, potassium 3.7, chloride 105, carbon dioxide 27, BUN 14, creatinine 0.96. Troponin I is less than 0.010 x2. TSH is low at 0.0650, free T4 is slightly elevated 1.53. IMPRESSION: 1. Symptomatic bradycardia with heart rate as low as 40 per minute. 2. Hypertension. 3. Hyperlipidemia. 4. Hypothyroidism. PLAN: Echocardiogram will be performed to assess left ventricular function. Fasting lipid profile will be obtained. She will continue to be monitored overnight. She certainly may require pacemaker placement. Risks of this were discussed with the patient including , infection, bleeding, blood clot formation, pneumothorax, cardiac tamponade with surgical drainage, reoperation for lead dislodgement, etc. She understands and will be further evaluated in the morning by Dr. Martin. Job ID: [id number] MTDD
[2019-01-25 05:44] LABS: #Basophils 0.1 thou/uL (0.0-0.2); #Eosinphils 0.2 thou/uL (0.0-0.7); #Lymphocytes 1.7 thou/uL (1.20-3.40); #Monocytes 0.5 thou/uL (0.11-0.59); #Neutrophils 2.7 thou/uL (1.40-6.50); %Basophils 1.4 % (0.0-1.0); %Eosinophils 4.5 % (0.0-10.0); %Lymphocytes 33.1 % (21.0-51.0); %Monocytes 9.7 % (0.0-10.0); %Neutrophils 51.3 % (42.0-75.0); Hemoglobin 12.5 g/dL (12.0-16.0); Mean Corpuscular HGB CONC 33.6 g/dL (32.0-36.0); Mean Corpuscular Hemoglobin 31.5 pg (27.0-31.0); Mean Corpuscular Volume 93.8 fL (78.0-98.0); Platelet Count 168 thou/uL (130-400); Red Blood Cell (RBC) Count 3.97 mill/uL (4.20-5.40); White Blood Cell (WBC) Count 5.2 thou/uL (4.8-10.8)
[2019-01-25 06:01] LABS: Anion Gap 12 mmol/L (10-20); BUN (Urea Nitrogen) 17 mg/dL (9.8-20.1); Calc. Creatinine Clearance 69 mL/min (70-130); Calcium 9.4 mg/dL (7.8-10.44); Carbon Dioxide 24 mmol/L (23-31); Cardiac Risk 4.8 (Less than 4.5); Chloride 102 mmol/L (98-107); Cholesterol 150 mg/dl (< 200 Desired); Estimated GFR-MDRD 62; Glucose 89 mg/dL (80-115); HDL Cholesterol 31 mg/dL (>60 Neg Risk); LDL Cholesterol, Calculated 98 mg/dL; Potassium 3.4 mmol/L (3.5-5.1); Sodium 135 mmol/L (136-145); Triglycerides 103 mg/dL (Less than 150)
[2019-01-25] MEDS: Aspirin 81 mg Enteric Coated Tablet PO SCH (08:44)
[2019-01-25] MEDS: Levothyroxine Sodium 100 MCG TAB PO SCH (08:44)
[2019-01-25] MEDS ORDERED: Potassium Chloride 20 MEQ TAB PO SCH (08:45)
[2019-01-25] MEDS: Lisinopril/Hydrochlorothiazide 20 mg/12.5 mg Tablet PO SCH (08:45)
[2019-01-25] MEDS ORDERED: CEFAZOLIN 1 GM VIAL ONE (11:53)
[2019-01-25] MEDS ORDERED: Midazolam HCl 2 mg/2 ml Vial ONE (12:37)
[2019-01-25] MEDS ORDERED: Lidocaine 1% (PF) 30 ML VIAL ONE (12:58)
--- NOTE | 2019-01-25 14:04 | CCL ---
Date of procedure: 01/25/19 Indication: This is a 68-year-old female with sinus node dysfunction with symptomatic bradycardia. She was advise d to undergo dual chamber pacemaker insertion. She was taken to the cardiac slabbing machine operator where she was prepped and draped in the sterile fashion. Using modified Seldinger technique, the left subclavian vein was cannulated. The pacemaker leads were then inserted. The pacemaker lead was then attached. A full dictated note can be found in the chart. This was an Barwick dual chamber pacemaker from [employer] with two screw-in leads, one in the atrium and one in the ventricle. This is an MRI compatible device. Pacemaker was set with the upper rate at 130 and the lower rate was set at 60. There were no difficulties or complications encountered. Prior to the procedure, the patient was given 2 mg of IV versed for conscious sedation. Throughout the procedure s he was monitored by an independent observer present for heart rate, blood pressure, and O2 saturation s. These all remained stable. Total sedation time was 44 minutes. No complications or difficulties we re encountered.
[2019-01-25] MEDS ORDERED: Acetaminophen/Codeine 30-300mg Tablet PO PRN (14:28)
--- NOTE | 2019-01-25 14:56 | RAD ---
Chest AP view INDICATION: Postcardiac device placement COMPARISON: Prior exam dated January 24, 2019 FINDINGS: Lungs:The lungs are clear Cardiac silhouette pulmonary vasculature:There is been interval placement of a dual-lead pacemaker. P acemaker leads project in expected position. The pacemaker generator pack overlies the anterior left chest wall. Heart size is upper limits of normal but stable. Pleural spaces:No pneumothorax. Upper abdomen:No abnormality seen. Osseous structures: No acute osseous abnormality. Additional findings:None. IMPRESSION: Interval placement of a dual lead pacemaker without overt evidence of complication.
[2019-01-25] MEDS: Acetaminophen 325 MG TAB PO PRN (20:26)
[2019-01-25] MEDS ORDERED: Atorvastatin Calcium 10 MG TAB PO SCH (21:00)
[2019-01-26 04:41] LABS: #Eosinphils 0.2 thou/uL (0.0-0.7); #Lymphocytes 1.2 thou/uL (1.20-3.40); #Monocytes 0.6 thou/uL (0.11-0.59); #Neutrophils 3.5 thou/uL (1.40-6.50); %Basophils 0.7 % (0.0-1.0); %Eosinophils 4.3 % (0.0-10.0); %Lymphocytes 21.1 % (21.0-51.0); %Neutrophils 62.9 % (42.0-75.0); Mean Corpuscular Hemoglobin 31.1 pg (27.0-31.0); Mean Corpuscular Volume 94.2 fL (78.0-98.0); Mean Platelet Volume 8.1 fL (7.4-10.4); Platelet Count 167 thou/uL (130-400); RBC Distribution Width 12.1 % (11.5-14.5); Red Blood Cell (RBC) Count 4.19 mill/uL (4.20-5.40); White Blood Cell (WBC) Count 5.6 thou/uL (4.8-10.8)
[2019-01-26 05:06] LABS: Anion Gap 12 mmol/L (10-20); BUN (Urea Nitrogen) 18 mg/dL (9.8-20.1); Calc. Creatinine Clearance 61 mL/min (70-130); Calcium 8.9 mg/dL (7.8-10.44); Carbon Dioxide 24 mmol/L (23-31); Chloride 103 mmol/L (98-107); Estimated GFR-MDRD 55; Glucose 100 mg/dL (80-115); Potassium 3.4 mmol/L (3.5-5.1); Sodium 136 mmol/L (136-145)
--- NOTE | 2019-01-26 07:40 | PDOC.PN ---
- Subjective Encounter Start Date: 01/25/19 Encounter Start Time: 17:38 Subjective: Patient states she has mild discomfort to left shoulder, but no significant -: pain. Improved with icepack given to her. She otherwise feels well and -: no longer experiencing lightheadedness when she has stool to use the toilet Concerned she may move her arm at night in her sleep but given a sling to help secure her arm. - Objective Vital Signs & Weight: Vital Signs (12 hours) Temp Pulse Resp BP Pulse Ox 01/26/19 04:00 98.4 F 59 L 18 117/59 L 94 L 01/25/19 19:45 98.7 F 62 16 119/59 L 97 Weight Admit Weight 158 lb Weight 154 lb 9.6 oz I&O: 01/25/19 01/26/19 01/27/19 06:59 06:59 06:59 Intake Total 300 560 Output Total 1050 Balance -750 560 Result Diagrams: 01/26/19 04:18 01/26/19 04:18 Phys Exam - Physical Examination Constitutional: NAD HEENT: PERRLA, moist MMs, oral pharynx no lesions Neck: supple, full ROM Respiratory: no wheezing, no rales, no rhonchi, clear to auscultation bilateral Cardiovascular: RRR left chest wall with clean incision, no erythema, soft tissue swelling from PM placement. Gastrointestinal: soft, non-tender, no distention, positive bowel sounds Musculoskeletal: no edema, pulses present Neurological: normal sensation, moves all 4 limbs Psychiatric: normal affect, A&O x 3 Skin: no rash Dx/Plan (1) Bradycardia Code(s): R00.1 - BRADYCARDIA, UNSPECIFIED Status: Chronic (2) Hypertension Code(s): I10 - ESSENTIAL (PRIMARY) HYPERTENSION Status: Chronic (3) Hypothyroidism Code(s): E03.9 - HYPOTHYROIDISM, UNSPECIFIED Status: Chronic - Plan cont current plan of care Patient status post PM placement without complications. -: Has sling to use at night to help avoid raising her left arm above her head -: as she tends to do. Disposition as per Dr. Martin. -: Patient feeling well and asymptomatic. Good support at home. * .
[2019-01-26] MEDS ORDERED: Potassium Chloride 10 MEQ TAB PO SCH (07:45)
[2019-01-26] MEDS: Levothyroxine Sodium 100 MCG TAB PO SCH (07:48)
[2019-01-26] MEDS: Aspirin 81 mg Enteric Coated Tablet PO SCH (07:48)
[2019-01-26] MEDS: Lisinopril/Hydrochlorothiazide 20 mg/12.5 mg Tablet PO SCH (07:48)
[2019-01-26] MEDS: Acetaminophen 325 MG TAB PO PRN (07:50)
[2019-01-26 08:01] VITALS: TEMP 98.3
--- NOTE | 2019-01-26 08:43 | PDOC.CTH ---
Cardiology Progress Note - Subjective pt. seen and eval. by me. no cardiac complaints. Pacer site looks good. CXR: no pneumo or hemo thorax. - Objective Vital Signs Temp Pulse Resp BP Pulse Ox 01/26/19 07:59 98.3 F 60 18 114/59 L 97 01/26/19 07:48 59 L 01/26/19 04:00 98.4 F 59 L 18 117/59 L 94 L Admit Weight 158 lb Weight 154 lb 9.6 oz 01/25/19 01/26/19 01/27/19 06:59 06:59 06:59 Intake Total 300 560 Output Total 1050 Balance -750 560 - Physical Examination General/Neuro: alert & oriented x3 Neck: carotid US brisk Lungs: CTA Heart: RRR Abdomen: soft - Labs Result Diagrams: 01/26/19 04:18 01/26/19 04:18 Troponin/CKMB Troponin I Less than 0.010 ng/mL (< 0.028) 01/24/19 19:07 - Assessment/Plan 1. s/p symptomatic bradycardia. s/p pacemaker insertion. Site looks good. No complications. AP/VS. Follow up in the offic ein 7-10 days for a wound check. Okay to d/c to home.
--- NOTE | 2019-01-26 10:32 | DIS ---
DATE OF ADMISSION: 01/24/2019 DATE OF DISCHARGE: 01/25/2019 DISCHARGE DIAGNOSES: 1. Symptomatic bradycardia, status post pacemaker placement on January 25, 2019. 2. Hypertension. 3. Hypothyroidism. 4. Hyperlipidemia. CONSULTING PHYSICIANS: 1. Dr. Martin, Cardiology. 2. Dr. Hawkins, Cardiology. HOSPITAL COURSE: Ms. King is a very pleasant 68-year-old woman, who presents with a history of bradycardia with development of lightheadedness and nausea. She was noted to have heart rate in the 40s when usually she runs between 50s and 60s. The patient underwent an EKG on initial admission, which showed a heart rate of 43, otherwise unremarkable. The patient had a chest x-ray done at initial presentation that showed no acute changes. Laboratory studies were notable for a white count of 4.7, hemoglobin 14.3, platelets of 191. Troponins done which were negative x3. Electrolytes unremarkable. On day of discharge, she did have a slightly low potassium of 3.4 and potassium was replaced. Initial assessment was done by Dr. Hawkins who had recommended an echocardiogram which was done on 01/25/2019. It showed bradycardia with an EF of 60% to 65%, trace mitral regurgitation, and trace tricuspid regurgitation with mild pulmonic regurgitation, otherwise unremarkable. She was assessed by Dr. Martin for possible pacemaker placement, which was done yesterday on January 25, 2019 without any complications. She had placement of a dual-chamber pacemaker, MRI compatible. Of note, the patient was seen by Dr. Martin on morning of discharge and given post pacemaker placement care instructions including activity and recommended antibiotics. Otherwise, cleared for discharge home. An EKG was also done showing a heart rate of 60. At this present time, the patient denies having any complaints. She has mild soreness around the pacemaker, but no severe pain. Her nausea and lightheadedness have resolved, but she has been able to walk to the toilet without any difficulty. She has been tolerating oral intake and has not had any abdominal pain. All other review of systems are negative. The patient was seen and examined on day of discharge. CONDITION AT DISCHARGE: Stable. DIET: Heart healthy. ACTIVITY: As per instructions given following pacemaker placement. The patient does plan to use a sling to help remind her not to do any heavy lifting, twisting, or raise her arm above her head, which she tends to do at night which she sleeps. Sling provided. DISCHARGE MEDICATIONS: 1. Prescriptions sent for Keflex 500 mg p.o. every 6 hours for 7 days. 2. The patient otherwise advised to resume home medications. FOLLOWUP: 1. The patient will see her primary care physician within the next week and will have repeat laboratory studies done including electrolytes given her potassium has been slightly abnormal. She is on hydrochlorothiazide and may require regular potassium replacement. 2. She will follow up in 10 days with Cardiology nurse as per Dr. Martin. DISPOSITION: The patient is medically cleared for discharge home on 01/26/2019. Discussed with attending who agrees with plan of care as described above. Job ID: [id number]
[2019-01-26 11:57] VITALS: BP 116/57
--- NOTE | 2019-01-27 11:27 | EKG ---
Test Reason : Blood Pressure : / mmHG Vent. Rate : 060 BPM Atrial Rate : 060 BPM P-R Int : 170 ms QRS Dur : 086 ms QT Int : 460 ms P-R-T Axes : 000 021 076 degrees QTc Int : 460 ms Electronic atrial pacemaker When compared with ECG of 09-JUN-2017 07:03, Electronic atrial pacemaker has replaced Sinus rhythm Confirmed by TANIYA BELLO ([id number]) on 01/27/2019 11:27:25 AM Referred By: RAJESH Confirmed By:TANIYA BELLO
== END 2019-01-26 12:22 | disposition home or self-care (01) | DRG 244 ==
LOC: SCSER 11:56 → SCSEROBS 13:30 → OBSVTOIN 13:30 → 2SW 15:30 → 2NO 01-25 15:42
PROVIDERS: ADMIT Internal Medicine; ATTEND Internal Medicine
PROC: 0JH606Z Insertion of Pacemaker, Dual Chamber into Chest Subcutaneous Tissue and Fascia, Open Approach (ICD-10-PCS; principal; 2019-01-25)
PROC: 02HK3JZ Insertion of Pacemaker Lead into Right Ventricle, Percutaneous Approach (ICD-10-PCS; 2019-01-25)
PROC: 02H63JZ Insertion of Pacemaker Lead into Right Atrium, Percutaneous Approach (ICD-10-PCS; 2019-01-25)
DX: R00.1 Bradycardia, unspecified (principal); I10 Essential (primary) hypertension; E03.9 Hypothyroidism, unspecified; E78.00 Pure hypercholesterolemia, unspecified; Z96.642 Presence of left artificial hip joint; Z79.82 Long term (current) use of aspirin; Z79.899 Other long term (current) drug therapy
CPT/HCPCS: 33208; 36415; 71045; 80048; 80053; 80061; 82550; 83605; 83690; 83735; 84439; 84443; 84484; 85025; 90471; 90670; 93005; 93010; 93306; 96374; 99152; 99153; C1785; C1898; G0009; J0461; J0690; J2001; J2250

== ENCOUNTER 2020-02-16 13:23 | Outpatient (CLI) | payer MEDICARE ==
--- NOTE | 2020-02-16 15:50 | MMO ---
Bilateral MAMMO Bilat Screen [facility]. CLINICAL HISTORY: Patient is 70 years old and is seen for screening. The patient has the following family history of breast cancer: mother, at age 65. The patient has no personal history of cancer. The patient has a history of right Stereotatic Biopsy in 2009 - benign. VIEWS: The views performed were: bilateral craniocaudal with tomosynthesis and bilateral mediolateral oblique with tomosynthesis. FILMS COMPARED: The present examination has been compared to prior imaging studies performed at [facility] on 01/29/2015 and 01/30/2016, and at [facility] on 01/30/2017 and 02/03/2018. This study has been interpreted with the assistance of computer-aided detection. MAMMOGRAM FINDINGS: There are scattered fibroglandular densities. Benign calcifications are noted bilaterally. Right biopsy clip. There are no suspicious masses, suspicious calcifications, or new areas of architectural distortion. IMPRESSION: THERE IS NO MAMMOGRAPHIC EVIDENCE OF MALIGNANCY. A ROUTINE FOLLOW-UP MAMMOGRAM IN 1 YEAR IS RECOMMENDED. THE RESULTS OF THIS EXAM WERE SENT TO THE PATIENT. ACR BI-RADS Category 2 - Benign finding MAMMOGRAPHY NOTE: 1. A negative mammogram report should not delay a biopsy if a dominant of clinically suspicious mass is present. 2. Approximately 10% to 15% of breast cancers are not detected by mammography. 3. Adenosis and dense breasts may obscure an underlying neoplasm. Reported by: KELLY JONES MD Electonically Signed: [id number]
== END 2020-02-16 13:24 | disposition home or self-care (01) ==
LOC: BICMAMMO 13:23
PROVIDERS: ATTEND Internal Medicine
DX: Z12.31 Encounter for screening mammogram for malignant neoplasm of breast (principal); Z80.3 Family history of malignant neoplasm of breast; Z91.89 Other specified personal risk factors, not elsewhere classified
CPT/HCPCS: 77063; 77067

== ENCOUNTER 2021-03-02 19:48 | Emergency (ER) | payer MEDICARE, OTHER ==
[2021-03-02 20:44] LABS: #Basophils 0.1 thou/uL (0.0-0.2); #Eosinphils 0.2 thou/uL (0.0-0.7); #Lymphocytes 1.6 thou/uL (1.20-3.40); #Monocytes 0.8 thou/uL (0.11-0.59); #Neutrophils 2.8 thou/uL (1.40-6.50); %Basophils 1.2 % (0.0-1.0); %Eosinophils 4.5 % (0.0-10.0); %Lymphocytes 29.1 % (21.0-51.0); %Monocytes 13.9 % (0.0-10.0); %Neutrophils 51.3 % (42.0-75.0); Hemoglobin 12.6 g/dL (12.0-16.0); Mean Corpuscular HGB CONC 34.2 g/dL (32.0-36.0); Mean Corpuscular Hemoglobin 32.2 pg (27.0-31.0); Mean Corpuscular Volume 94.3 fL (78.0-98.0); Mean Platelet Volume 8.5 fL (7.4-10.4); Platelet Count 190 thou/uL (130-400); RBC Distribution Width 12.6 % (11.5-14.5); Red Blood Cell (RBC) Count 3.91 mill/uL (4.20-5.40); White Blood Cell (WBC) Count 5.5 thou/uL (4.8-10.8)
[2021-03-02 21:07] LABS: ALT (SGPT) 12 U/L (8-55); AST (SGOT) 17 U/L (5-34); Albumin 3.8 g/dL (3.4-4.8); Alkaline Phosphatase 81 U/L (40-110); Anion Gap 9 mmol/L (10-20); BUN (Urea Nitrogen) 20 mg/dL (9.8-20.1); Calc. Creatinine Clearance 0 mL/min (70-130); Calcium 9.2 mg/dL (7.8-10.44); Carbon Dioxide 29 mmol/L (23-31); Chloride 101 mmol/L (98-107); Globulin 2.6 g/dL (2.4-3.5); Glucose 98 mg/dL (80-115); Lipase 31 U/L (8-78); Protein, Total 6.4 g/dL (5.8-8.1); Sodium 136 mmol/L (136-145)
[2021-03-02 21:17] LABS: Bilirubin Negative (Negative); Blood, Urine Negative (Negative); Clarity Clear (Clear); Glucose, Urine (Dipstick) Normal (Negative); Ketone, Urine Negative (Negative); Leukocyte Negative Leu/uL (Negative); Nitrite Negative (Negative); Protein, Urine (Dipstick) Negative (Neg-Trace); Specific Gravity, Urine 1.006 (1.002-1.036); Urobilinogen Normal mg/dL (Less than 2)
[2021-03-02 21:33] LABS: Potassium 2.9 mmol/L (3.5-5.1)
[2021-03-02] MEDS ORDERED: Potassium Chloride 20 MEQ TAB ONE (21:54)
== END 2021-03-02 22:06 | disposition home or self-care (01) ==
LOC: ERS 19:48
DX: E87.6 Hypokalemia (principal); R53.83 Other fatigue; R53.81 Other malaise; E78.5 Hyperlipidemia, unspecified; E03.9 Hypothyroidism, unspecified; Z79.82 Long term (current) use of aspirin; Z79.899 Other long term (current) drug therapy
CPT/HCPCS: 36415; 71045; 80053; 81003; 83690; 84484; 85025; 87086; 93005

== ENCOUNTER 2022-08-22 13:53 | Outpatient (CLI) | payer MEDICARE ==
[2022-08-22 14:48] LABS: #Basophils 0.1 10x3/uL (0.0-0.2); #Eosinphils 0.3 10x3/uL (0.0-0.5); #Monocytes 0.7 10x3/uL (0.0-1.1); #Neutrophils 3.7 10x3/uL (1.5-8.4); %Basophils 1.3 % (0.0-2.0); %Lymphocytes 23.8 % (18.0-47.0); %Monocytes 11.8 % (0.0-10.0); %Neutrophils 58.9 % (40.0-75.0); Hemoglobin 12.2 g/dL (12.0-15.5); Mean Corpuscular HGB CONC 33.6 g/dL (32.0-36.0); Mean Corpuscular Hemoglobin 31.4 pg (27.0-33.0); Mean Corpuscular Volume 93.6 fl (81.6-98.3); Mean Platelet Volume 10.9 fl (7.4-10.4); Platelet Count 205 10x3/uL (150-450); RBC Distribution Width 13.3 % (11.5-14.5); Red Blood Cell (RBC) Count 3.88 10x6/uL (3.90-5.03); White Blood Cell (WBC) Count 6.3 10x3/uL (3.5-10.5)
[2022-08-22 15:14] LABS: Anion Gap 16 mmol/L (10-20); BUN (Urea Nitrogen) 20 mg/dL (9.8-20.1); Calc. Creatinine Clearance 0 mL/min (70-130); Calcium 9.4 mg/dL (7.8-10.44); Carbon Dioxide 24 mmol/L (23-31); Chloride 106 mmol/L (98-107); Estimated GFR 47; Glucose 97 mg/dL (83-110); Potassium 3.7 mmol/L (3.5-5.1); Sodium 142 mmol/L (136-145)
[2022-08-22 15:33] LABS: INR-International Normal Ratio 0.9; Prothrombin Time 10.3 sec (9.5-12.1)
== END 2022-08-22 13:54 | disposition home or self-care (01) ==
LOC: LABBT 13:53
PROVIDERS: ATTEND Orthopaedic Surgery
DX: Z01.818 Encounter for other preprocedural examination (principal); M16.11 Unilateral primary osteoarthritis, right hip
CPT/HCPCS: 80048; 85025; 85610; 87081

== ENCOUNTER 2022-08-25 06:34 | Observation (INO) | payer MEDICARE ==
[2022-08-21 12:07] VITALS: BMI 29.2
[2022-08-25] MEDS ORDERED: Vancomycin 1 GM/200 ML (FROZEN) BAG ONE (07:22)
[2022-08-25] MEDS ORDERED: CEFAZOLIN 2 GM VIAL ONE ×2 (07:23→14:20)
[2022-08-25] MEDS ORDERED: Sodium Chloride 0.9% 10 ML ONE (07:23)
[2022-08-25] MEDS ORDERED: Tranexamic Acid 1,000 MG/10 ML VIAL ONE (07:23)
[2022-08-25] MEDS ORDERED: Sodium Chloride 0.9% 100 ML ONE ×2 (07:24→14:20)
[2022-08-25] MEDS ORDERED: Midazolam HCl 2 mg/2 ml Vial ONE (07:38)
[2022-08-25] MEDS ORDERED: Fentanyl 100 MCG/2 ML VIAL ONE (07:38)
[2022-08-25] MEDS ORDERED: Ropivacaine 0.5% HCl/PF (150 MG/30 ML VIAL) ONE (07:38)
[2022-08-25 08:06] LABS: SARS-CoV-2 NAA Rapid Test Not Detected (NotDetected)
[2022-08-25] MEDS ORDERED: Propofol 500 MG/50 ML VIAL ONE (08:07)
[2022-08-25] MEDS ORDERED: Acetaminophen 500 MG TAB ONE (08:24)
[2022-08-25] MEDS ORDERED: fentaNYL PF 100 MCG/2 ML SYRINGE ONE (08:55)
[2022-08-25] MEDS ORDERED: Lidocaine 2% 6 ML SYR ONE (08:55)
[2022-08-25] MEDS ORDERED: Lidocaine 1% MPF 2 ML VIAL ONE (09:02)
[2022-08-25] MEDS ORDERED: PHENYLEPHRINE-NS 100 MCG/ML 10 ML SYRINGE ONE (09:08)
[2022-08-25] MEDS ORDERED: Ondansetron PF 4 MG/2 ML Vial ONE (09:08)
[2022-08-25] MEDS ORDERED: PROPOFOL 200 MG/20 ML VIAL ONE (09:08)
[2022-08-25] MEDS ORDERED: Dexamethasone 20 MG/5 ML VIAL ONE (09:08)
[2022-08-25] MEDS ORDERED: Promethazine HCl 25 MG/ML VIAL IM PRN ×2 (09:10→10:11)
[2022-08-25] MEDS ORDERED: diphenhydrAMINE 25 MG CAP PO PRN (09:10)
[2022-08-25] MEDS ORDERED: Zolpidem Tartrate 5 MG TAB PO PRN (09:10)
[2022-08-25] MEDS ORDERED: Ondansetron PF 4 MG/2 ML Vial IVP PRN (09:10)
[2022-08-25] MEDS ORDERED: Acetaminophen 325 MG TAB PO PRN (09:10)
[2022-08-25] MEDS ORDERED: Ondansetron HCl/PF 4 MG/2 ML Vial IVP PRN (10:11)
[2022-08-25] MEDS: Ketorolac Tromethamine 30 MG/ML VIAL IVP SCH ×2 (13:34→22:29)
[2022-08-25] MEDS ORDERED: HYDROcodone/Acetaminophen 10/325 mg Tablet ONE (13:37)
[2022-08-25] MEDS ORDERED: Ketorolac Tromethamine 30 MG/ML VIAL ONE (13:37)
[2022-08-25] MEDS: HYDROcodone/Acetaminophen 10/325 mg Tablet PO PRN ×2 (13:39→21:08)
[2022-08-25] MEDS ORDERED: CEFAZOLIN 2 GM in Sodium Chloride 0.9% 100 ML IVPB SCH ×2 (14:00→18:00)
[2022-08-25] MEDS ORDERED: Acetaminophen 325 MG TAB ONE (15:49)
[2022-08-25] MEDS: Sodium Chloride 0.9% 1,000 ML IV SCH ×2 (18:22→21:12)
[2022-08-25] MEDS ORDERED: Metoprolol Tartrate 50 MG TAB PO SCH (21:00)
[2022-08-25] MEDS ORDERED: Atorvastatin Calcium 20 MG TAB PO SCH (21:00)
[2022-08-25] MEDS: Aspirin 81 mg Enteric Coated Tablet PO SCH (21:08)
[2022-08-25] MEDS: Senokot S 8.6-50 MG TAB PO SCH (21:09)
[2022-08-25] MEDS: Metoprolol Tartrate 50 MG TAB PO SCH (21:10)
[2022-08-25] MEDS: Ferrous Gluconate 324 MG TAB PO SCH (21:16)
[2022-08-25] MEDS: CEFAZOLIN 2 GM in Sodium Chloride 0.9% 100 ML IVPB SCH (22:28)
[2022-08-26] MEDS: HYDROcodone/Acetaminophen 10/325 mg Tablet PO PRN ×2 (00:55→05:19)
[2022-08-26] MEDS: CEFAZOLIN 2 GM in Sodium Chloride 0.9% 100 ML IVPB SCH (05:21)
[2022-08-26] MEDS: Sodium Chloride 0.9% 1,000 ML IV SCH (05:24)
[2022-08-26 05:53] LABS: Hemoglobin 9.1 g/dL (12.0-16.0); Mean Corpuscular Hemoglobin 32.2 pg (27.0-31.0); Mean Corpuscular Volume 97.6 fl (78.0-98.0); Mean Platelet Volume 8.3 fL (7.4-10.4); Platelet Count 150 10x3/uL (130-400); RBC Distribution Width 12.1 % (11.5-14.5); Red Blood Cell (RBC) Count 2.83 mill/uL (4.20-5.40); White Blood Cell (WBC) Count 8.9 10x3/uL (4.8-10.8)
[2022-08-26] MEDS ORDERED: Levothyroxine Sodium 75 MCG TAB PO SCH (06:00)
[2022-08-26] MEDS: Ketorolac Tromethamine 30 MG/ML VIAL IVP SCH (06:31)
[2022-08-26 07:58] VITALS: TEMP 97.8
[2022-08-26] MEDS: Ferrous Gluconate 324 MG TAB PO SCH (08:59)
[2022-08-26] MEDS: Aspirin 81 mg Enteric Coated Tablet PO SCH (08:59)
[2022-08-26] MEDS: Senokot S 8.6-50 MG TAB PO SCH (08:59)
[2022-08-26] MEDS: Metoprolol Tartrate 50 MG TAB PO SCH (09:00)
[2022-08-26] MEDS ORDERED: Levothyroxine Sodium 100 MCG TAB PO SCH (09:00)
[2022-08-26] MEDS ORDERED: Lisinopril/Hydrochlorothiazide 20 mg/12.5 mg Tablet PO SCH (09:00)
[2022-08-26] MEDS ORDERED: Multivitamin W/ Minerals 1 TAB PO SCH (09:00)
[2022-08-26 12:45] VITALS: BP 117/65
== END 2022-08-26 12:05 | disposition home or self-care (01) ==
LOC: SDC 06:34 → SURG A 17:33
PROVIDERS: ADMIT Orthopaedic Surgery; ATTEND Orthopaedic Surgery
PROC: 0SR904A Replacement of Right Hip Joint with Ceramic on Polyethylene Synthetic Substitute, Uncemented, Open Approach (ICD-10-PCS; principal; 2022-08-25)
DX: M16.11 Unilateral primary osteoarthritis, right hip (principal); M17.0 Bilateral primary osteoarthritis of knee; E07.9 Disorder of thyroid, unspecified; E78.00 Pure hypercholesterolemia, unspecified; Z79.82 Long term (current) use of aspirin; Z79.890 Hormone replacement therapy; Z79.899 Other long term (current) drug therapy; Z96.642 Presence of left artificial hip joint; Z20.822 Contact with and (suspected) exposure to COVID-19
CPT/HCPCS: 27130; 73502; 82962; 85027; 97110; 97116 ×2; 97530 ×2; 97535; C1776; J3370; U0002; 36415; 36416; 96374; 96375; 96376; G0378; J1100; J1885; J2250; J2405; J2704; J2795; J3010; J3490

== ENCOUNTER 2023-12-29 09:12 | Outpatient (CLI) | payer MEDICARE | END 2023-12-29 09:13 | disposition home or self-care (01) | LOC: BICMAMMO 09:12 | PROVIDERS: ATTEND Internal Medicine | DX: Z12.31 Encounter for screening mammogram for malignant neoplasm of breast (principal); N64.89 Other specified disorders of breast; Z80.3 Family history of malignant neoplasm of breast; Z91.89 Other specified personal risk factors, not elsewhere classified | CPT/HCPCS: 77063; 77067 ==

== ENCOUNTER 2024-01-04 09:17 | Outpatient (CLI) | payer MEDICARE | END 2024-01-04 09:18 | disposition home or self-care (01) | LOC: BICMAMMO 09:17 | PROVIDERS: ATTEND Internal Medicine | DX: N64.89 Other specified disorders of breast (principal) | CPT/HCPCS: 76642; 77065; G0279 ==